=== PATIENT | male | born 1980 | race Caucasian/White ===

== ENCOUNTER 2025-01-06 05:02 | Day surgery (SDC) | payer OTHER ==
[2025-01-01 12:27] VITALS: BMI 36.8
[2025-01-06] MEDS: BUPIVACAINE HCL/PF 0.5% (5 MG/ML) 30 ML VIAL IJ ONE
[2025-01-06] MEDS ORDERED: MIDAZOLAM HCL 2 MG/2 ML SINGLE DOSE VIAL ONE ×2 (09:09→10:10)
[2025-01-06] MEDS ORDERED: PROPOFOL 20 ML ONE ×2 (09:19→10:29)
[2025-01-06] MEDS ORDERED: BUPIVACAINE HCL/PF 0.5% (5MG/ML) 10 ML VIAL ONE ×2 (09:52→10:18)
[2025-01-06] MEDS ORDERED: LIDOCAINE HCL/PF 2% SDV 5ML VIAL ONE (10:26)
[2025-01-06] MEDS ORDERED: DEXAMETHASONE SOD PHOSPHATE 4 MG/1 ML VIAL ONE (10:35)
[2025-01-06] MEDS ORDERED: ONDANSETRON 4 MG/2 ML VIAL ONE (10:35)
[2025-01-06] MEDS: ceFAZolin SODIUM 1 GM VIAL IVPB ONE ×2 (10:36)
[2025-01-06] MEDS: BUPIVACAINE HCL/PF 0.5% (5MG/ML) 10 ML VIAL IJ ONE ×2 (10:38)
[2025-01-06] MEDS ORDERED: BACITRACIN ZINC 15 GM TUBE TOPICAL OINTMENT ONE (10:57)
[2025-01-06] MEDS: LACTATED RINGERS SOLUTION 1,000 ML IV SCH (11:13)
[2025-01-06] MEDS ORDERED: ONDANSETRON 4 MG/2 ML VIAL IVPUSH PRN (11:20)
[2025-01-06] MEDS ORDERED: oxyCODONE HCL 5 MG TABLET PO PRN (11:20)
[2025-01-06] MEDS ORDERED: ELECTROLYTE-148 SOLN 1,000 ML IV SCH (11:45)
[2025-01-06 12:38] VITALS: RESP 16
[2025-01-06 13:39] VITALS: BP 142/67; PULSE 82; TEMP 97.8
== END 2025-01-06 13:35 | disposition home or self-care (01) ==
LOC: JASU-SURG 05:02
PROVIDERS: ATTEND Urology
PROC: 0VTTXZZ Resection of Prepuce, External Approach (ICD-10-PCS; principal; 2025-01-06 09:30)
DX: N47.1 Phimosis (principal)
CPT/HCPCS: 88304-TC; 94760